=== PATIENT | male | born 1960 | race Caucasian/White ===

== ENCOUNTER 2017-10-15 03:32 | Emergency (ER) | payer OTHER ==
[~2017-10-15] VITALS: Ht 177.8 cm; Wt 131.9 kg
[~2017-10-15 03:32] MED LIST: ASPIRIN325 MG PO; CLOPIDOGREL75 MG PO; FLOVENT DISKUS1 DIS2 IH; KEFLEX500 MG PO; LORATADINE10 M2 PO; METOPROLOL SUCC25 MG PO; NITROSTAT0.3 MG SL; PREDNISONE50 MG PO; RANITIDINE HCL300 MG PO; SIMVASTATIN40 MG PO
[2017-10-15 05:03] LABS: HEMATOCRIT 54.4 % (38.0-50.0); MCH 32.7 PG (29.0-34.0); MCHC 33.1 G/DL (30.0-36.0); MCV 98.7 FL (86-99); PLATELET COUNT 174 K/uL (156-360); RBC DIS.WIDTH-CV 14.6 % (11.8-14.6); RBC DIS.WIDTH-SD 53.2 % (39-53); RED BLOOD COUNT 5.51 M/uL (4.00-5.50)
[2017-10-15 05:24] VITALS: BP 134/73
== END 2017-10-15 05:24 | disposition home or self-care (01) ==
LOC: EME 03:32
DX: S06.0X0A Concussion without loss of consciousness, initial encounter (principal); S01.01XA Laceration without foreign body of scalp, initial encounter; W18.30XA Fall on same level, unspecified, initial encounter; Z79.02 Long term (current) use of antithrombotics/antiplatelets; Z23 Encounter for immunization; E78.5 Hyperlipidemia, unspecified; I10 Essential (primary) hypertension; J44.9 Chronic obstructive pulmonary disease, unspecified; K21.9 Gastro-esophageal reflux disease without esophagitis; Z88.0 Allergy status to penicillin; F17.210 Nicotine dependence, cigarettes, uncomplicated
CPT/HCPCS: 70450; 72125; 85027; 85610; 85730; 99281; 99284